=== PATIENT | female | born 1970 | race African-American/Black ===

== ENCOUNTER 2021-07-25 09:34 | Inpatient (IN) | payer OTHER ==
[~2021-07-25] VITALS: Ht 165.1 cm; Wt 72.6 kg
--- NOTE | 2021-07-25 09:37 | NUR ---
[facility] BLS TO ER BED 1
[2021-07-25 09:56] VITALS: BP 175/106
[2021-07-25] MEDS ORDERED: LORazepam 1 MG TAB PO ONE (10:05)
--- NOTE | 2021-07-25 10:10 | NUR ---
ASSUMED PATIENT CARE, NURSING ASSESSMENT COMPLETED. SEEN AND EVALUATED BY LISA MORRELL COMPLETED.
[2021-07-25 10:50] LABS: BASOPHILS # (AUTO) 0.1 K/uL (0.00-0.22); BASOPHILS % (AUTO) 0.5 % (0.0-2.0); EOSINOPHILS # (AUTO) 0.1 K/uL (0-0.4); HEMATOCRIT 39.3 % (36-48); HEMOGLOBIN 12.7 g/dL (12.0-16.0); LYMPHOCYTES # (AUTO) 3.3 K/uL (2.5-16.5); LYMPHOCYTES % (AUTO) 26.7 % (20.5-51.1); MEAN CORPUSCULAR HEMOGLOBIN 26 pg (27-31); MEAN CORPUSCULAR HGB CONC 32 g/dL (33-37); MEAN CORPUSCULAR VOLUME 80.2 fL (80-94); MONOCYTES # (AUTO) 0.5 K/uL (0.8-1.0); MONOCYTES % (AUTO) 4.3 % (1.7-9.3); NEUTROPHILS # (AUTO) 8.3 K/uL (1.8-7.7); NEUTROPHILS % (AUTO) 67.5 % (42.2-75.2); PLATELET COUNT (AUTO) 401 K/uL (140-450); RED CELL DISTRIBUTION WIDTH 15.7 % (11.6-13.7); WHITE BLOOD COUNT (AUTO) 12.3 K/uL (4.8-10.8)
[2021-07-25 11:19] LABS: ALBUMIN 4.1 g/dL (3.4-5.0); ANION GAP 13.6 (8-16); CARBON DIOXIDE 29.2 mmol/L (21-32); CREATININE 1.1 mg/dL (0.6-1.3); TOTAL BILIRUBIN 0.3 mg/dL (0.0-1.0)
[2021-07-25 11:24] LABS: POTASSIUM 2.8 mmol/L (3.5-5.1)
[2021-07-25] MEDS ORDERED: POTASSIUM CHLORIDE 10 MEQ TABER PO ONE (11:25)
[2021-07-25] MEDS ORDERED: LORazepam 2 MG/ML VIAL IVP ONE (11:55)
[2021-07-25] MEDS ORDERED: METOCLOPRAMIDE 10 MG/2 ML INJ VIAL IVP PRN (13:20)
[2021-07-25] MEDS ORDERED: POTASSIUM CHLORIDE 10 MEQ TABER PO PRN (13:20)
[2021-07-25] MEDS ORDERED: MAGNESIUM OXIDE 400 MG TAB PO PRN (13:20)
[2021-07-25] MEDS: POTASSIUM CHL 20 MEQ/NACL 0.9% 1,000 ML IV SCH (13:20)
--- NOTE | 2021-07-25 14:25 | NUR ---
Patient will be admitted to care of [facility]. Admited to TELE. Will go to room 112B. Belongings list completed. Report to
[2021-07-25 14:40] VITALS: BP 161/86
--- NOTE | 2021-07-25 14:40 | NUR ---
PT ARRIVED ON TO UNIT VIA GURNEY, ACCOMPANIED BY ER NURSE AND TRANSPORTER. PT IS AWAKE, ALERT, AND COOPERATIVE. ABLE TO VERBALIZE NEEDS. RESPIRATIONS ARE EVEN AND UNLABORED ON ROOM AIR. LUNG SOUNDS CLEAR ON AUSCULTATION. HE IS REGULAR, PT IS ON CARDIAC MONITORING. ABD IS NONTENDER, NONDISTENDED WITH BOWEL SOUNDS PRESENT IN ALL QUADRANTS. PT IS CONTINENT OF BOWEL AND BLADDER, ABLE TO AMBULATE TO REST ROOM INDEPENDENTLY. SKIN IS WARM, DRY, AND INTACT. PT HAS IV TO R AC, 20G. MRSA SCREEN DONE. VITALS TAKEN. CALL LIGHT WITHIN REACH. ALL SAFETY MEASURES IN PLACE. WILL CONTINUE TO MONITOR.
--- NOTE | 2021-07-25 15:21 | NUR ---
DISPO AND MEDICAL DECISION MAKING INPATIENT ADMISSION FOR FURTHER MANAGEMENT. PATIENT CARE REPORT ENDORSED TO JONE CARRILLO. PATIENT UPDATED OF PLAN OF CARE.
[2021-07-25] MEDS: LORazepam 1 MG TAB PO PRN ×2 (17:37→23:33)
--- NOTE | 2021-07-25 17:38 | NUR ---
PT VERY ANXIOUS. REMOVING CLOTHES, RESTLESS IN BED. PT STATES SHE FEELS VERY ANXIOUS AND FEELS LIKE SHE CANNOT STAY STILL. STATES SHE FEELS HOT THEN COLD AND FEELS VERY UNCOMFORTABLE. PT STATES SHE FEELS LIKE THIS AT TIMES AT HOME, AND TAKES PO ATIVAN. RECEIVED ORDER FOR ATIVAN. ADMINISTERED. WILL CONTINUE TO MONITOR.
--- NOTE | 2021-07-25 19:22 | NUR ---
ENDORSED PT TO NAIL ASSEMBLY MACHINE OPERATOR NURSE FOR CONTINUITY OF CARE. PT IS STABLE.
--- NOTE | 2021-07-25 19:23 | NUR ---
RECEIVED REPORT FROM AM NURSE. PATIENT IN BED WELL RESTED, AAOX4. NO ACUTE DISTRESS NOTED. RESPIRATION EVEN UNLABORED. IVF NS WITH 20 MEQ KCL INFUSING AT 80 ML/HR. ON ROOM AIR. SAFETY MEASURES ARE IN PLACE. NO COMPLAINTS OF PAIN AT TGHIS TIME. CALL LIGHT WITHIN REACH. WILL CONTINUE TO MONITOR PT.
[2021-07-25 20:00] VITALS: BP 155/82
[2021-07-25] MEDS ORDERED: ZOLPIDEM 10 MG TAB PO PRN (20:15)
--- NOTE | 2021-07-25 20:15 | NUR ---
PATIENT COMPLAINED OF INABILITY TO SLEEP. PAGED DR. RUTH WITH NEW ORDER CARRIED OUT.
--- NOTE | 2021-07-25 22:00 | NUR ---
STARTED A NEW PERIPHERAL IV ON THE LEFT HAND WITH GOOD BACK FLOW OF BLOOD. TOLERATED WELL.
[2021-07-25 23:01] LABS: APPEARANCE,URINE CLEAR (CLEAR); BILIRUBIN,URINE NEGATIVE (NEGATIVE); BLOOD, URINE 1+ (NEGATIVE); COLOR,URINE YELLOW (YELLOW); LEUKOCYTE ESTERASE ,URINE NEGATIVE (NEGATIVE); NITRITE, URINE NEGATIVE (NEGATIVE); PH,URINE 7.5 (5.0-9.0); UGLUCOSE NEGATIVE (NEGATIVE)
[2021-07-25 23:20] LABS: RBC,URINE 0-5 /HPF (0-5); WBC,URINE 0-5 /HPF (0-5)
[2021-07-25 23:21] LABS: URINE AMORPHOUS URATE 1+ /HPF (None Seen)
[2021-07-26 01:11] VITALS: BP 162/85
--- NOTE | 2021-07-26 01:21 | NUR ---
PATIENT IS SLEEPING. NO SOB NOTED. CALL LIGHT WITHIN EASY REACH.
[2021-07-26] MEDS: POTASSIUM CHL 20 MEQ/NACL 0.9% 1,000 ML IV SCH ×2 (01:50→06:21)
[2021-07-26 04:00] VITALS: BP 152/70
[2021-07-26 06:48] LABS: BASOPHILS % (AUTO) 0.3 % (0.0-2.0); EOSINOPHILS # (AUTO) 0.1 K/uL (0-0.4); EOSINOPHILS % (AUTO) 1.2 % (0.0-4.0); HEMATOCRIT 37.3 % (36-48); HEMOGLOBIN 12.2 g/dL (12.0-16.0); LYMPHOCYTES # (AUTO) 2.7 K/uL (2.5-16.5); LYMPHOCYTES % (AUTO) 28.9 % (20.5-51.1); MEAN CORPUSCULAR HEMOGLOBIN 26 pg (27-31); MEAN CORPUSCULAR HGB CONC 33 g/dL (33-37); MEAN CORPUSCULAR VOLUME 79.9 fL (80-94); MONOCYTES # (AUTO) 0.5 K/uL (0.8-1.0); MONOCYTES % (AUTO) 5.2 % (1.7-9.3); NEUTROPHILS # (AUTO) 6.1 K/uL (1.8-7.7); NEUTROPHILS % (AUTO) 64.4 % (42.2-75.2); PLATELET COUNT (AUTO) 333 K/uL (140-450); RED BLOOD CELL COUNT(AUTO) 4.67 MIL/uL (4.20-5.40); RED CELL DISTRIBUTION WIDTH 15.6 % (11.6-13.7); WHITE BLOOD COUNT (AUTO) 9.5 K/uL (4.8-10.8)
[2021-07-26 06:54] LABS: ALBUMIN 3.7 g/dL (3.4-5.0); ANION GAP 11.1 (8-16); CARBON DIOXIDE 27.4 mmol/L (21-32); CREATININE 0.8 mg/dL (0.6-1.3); POTASSIUM 3.5 mmol/L (3.5-5.1); TOTAL BILIRUBIN 0.3 mg/dL (0.0-1.0)
--- NOTE | 2021-07-26 07:20 | NUR ---
BEDSIDE ENDORSEMENT GIVEN TO AM NURSE FOR CONTINUITY OF CARE. PT IS STABLE.
--- NOTE | 2021-07-26 07:21 | NUR ---
RECEIVED BEDSIDE REPORT FROM ARTIFICIAL LIMB MAKER NURSE FOR CONTINUOUS OF CARE, PT RESTING, NO DISTRESS NOTED, ON ROOM AIR, NO SOB NOTED. IV TO LEFT HAND 25G PATENT INTACT, INFUSING NS 20MEQ KCL @ 80ML/HR, INFUSING WELL. INITIAL ASSESSMENT DONE, ALL SAFETY PRECAUTION MET, CALL LIGHT WITHIN REACH, WILL CONTINUE TO MONITOR.
[2021-07-26 08:00] VITALS: BP 154/98
--- NOTE | 2021-07-26 08:22 | NUR ---
NOTIFIED DR RUBIO REGARDING PT HIGH BP, PER PT ON MEDICATIONS AMLODIPINE, HYDROCHLOROTHIAZIDE AND LISINOPRIL AT HOME BUT DOES NOT KNOW THE DOSE, PER DR TO ORDER AMLODIPINE 10MG DAILY FOR NOW. WILL CONTINUE WITH ORDERS.
[2021-07-26] MEDS: LORazepam 1 MG TAB PO PRN (08:37)
--- NOTE | 2021-07-26 08:37 | NUR ---
PT C/O ANXIETY, ATIVAN GIVEN, PT TOLERATED WELL, WILL CONTINUE TO MONITOR.
[2021-07-26] MEDS ORDERED: amLODIPine 5 MG TAB PO SCH (09:00)
--- NOTE | 2021-07-26 09:03 | NUR ---
PT VOMITTED, PER PT ATIVAN THAT WAS TAKEN WAS THROWN UP, NOTIFIED DR. GRAY, PER DR TO CHANGE ORDER ATIVAN TO IV. WILL CONTINUE TO MONITOR.
[2021-07-26] MEDS ORDERED: LORazepam 2 MG/ML VIAL IVP PRN (09:10)
--- NOTE | 2021-07-26 09:24 | NUR ---
DUE MEDICATIONS ADMINISTERED, PT TOLERATED WELL, WILL CONTINUE TO MONITOR.
[2021-07-26] MEDS ORDERED: DOCU-299 PO (09:44)
[2021-07-26] MEDS ORDERED: RIZA10TA PO (09:44)
[2021-07-26] MEDS ORDERED: AMLO10TA PO (09:44)
[2021-07-26] MEDS ORDERED: IBUP200C97 PO (09:44)
[2021-07-26] MEDS ORDERED: TRAZ-343 PO (09:44)
[2021-07-26] MEDS ORDERED: VENL150T7 PO (09:44)
[2021-07-26] MEDS ORDERED: LOSA100T1 PO (09:44)
[2021-07-26] MEDS ORDERED: HYDR12.51 PO (09:44)
[2021-07-26] MEDS ORDERED: BUPR300T70 PO (09:44)
--- NOTE | 2021-07-26 11:50 | NUR ---
NOTIFIED DR GRAY REGARDING PT HAS HAD 4BM, PER DR TO ORDER CDIFF TEST, WILL CONTINUE WITH ORDERS.
[2021-07-26 12:00] VITALS: BP 130/93
--- NOTE | 2021-07-26 12:47 | NUR ---
07/26/21 RD INITIAL ASSESSMENT COMPLETED PLEASE REFER TO NUTRITION ASSESSMENT UNDER CARE ACTIVITY FOR ESTIMATED NUTRITIONAL NEEDS. 1. CONTINUE SOFT DIET TOLERATED -RECOMMEND ENSURE BID IF PT PO INTAKE IS < 75% 2. RD TO FOLLOW-UP 3-5 DAYS, MODERATE RISK DOLLY FLANNERY, RD
--- NOTE | 2021-07-26 13:36 | NUR ---
DC PLANNING SW MET WITH PATIENT AT BEDSIDE FOR THE PURPOSE OF DISCUSSING AND GATHERING COLLATERAL INFORMATION. PATIENT REPORTS LIVING ALONE AT THE ADDRESS LISTED. PATIENT REPORTS EMERGENCY CONTACT AND MEDICAL DECISION MAKER DAYANA NOBLE (MOM) [phone]. PATIENT DENIED CURRENTLY HAVING A.D IN PLACE, HOWEVER, PATIENT ACCEPTED AD PACKET PROVIDED BY [facility]. PATIENT ALSO REPORTS SON FAISAL KIMBLE (Son) EMERGENCY CONTACT [phone]. PATIENT REPORTS BEING CONSISTENT WITH SEEING PCP DR. TOUSSAINT EVERY OTHER MONTH AND LAST VISIT 06/2021. PATIENT ALSO REPORTS MEETING WITH A PSYCHIATRIST 1X MONTHLY AND LAST VISIT WITH PSYCHIATRIST 07/25/21. PATIENT REPORTS BEING MEDICATION COMPLIANT AND DENIES BARRIERS IN ACQUIRING MEDICATION. PATIENT RECEIVES MEDICATION FROM [facility] IN [place]. PATIENT REPORTS BEING INDEPENDENT AND DENIES DME USE. PATIENT DENIES RECEIVING DIALYSIS OR RECEIVING HOME HEALTH IN THE PAST. PATIENT REPORTS DC PLAN IS TO RETURN HOME WITH SON PROVIDING TRANSPORT. PATIENT REPORTS ADEQUATE FRIEND AND FAMILY SUPPORT AND REPORTS THE FAMILY WILL AID IN HER CARE IF REQUIRED. SW INQUIRED ON RESOURCES NEEDED, PATIENT DECLINED.
[2021-07-26] MEDS ORDERED: POTA-599 PO (14:00)
--- NOTE | 2021-07-26 14:29 | NUR ---
DC PLANNING: THE PATIENT PRESENTED TO THE ER FROM HOME WITH C/O HE, NAUSEA AND LIGHT SENSITIVITY X 3 DAYS. H/O HTN AND ANXIETY, WBC'S 12.3 AND ATIVAN PO PRN. THE PATIENT CONFIRMED HER ADDRESS AND PHONE NUMBER PER HER FACE SHEET. SHE LIVES ALONE IN A TOWNHOUSE AND IS INDEPENDENT IN ALL ACTIVITIES. SHE HAS NO H/O HOME HEALTH OR DME AND SEES HER PCP EVERY OTHER MONTH. SHE ALSO SEES HER PSYCHIATRIST MONTHLY FOR HER ANXIETY ISSUES AND IS ASSISTED NEEDED BY HER MOTHER AND HER SON. HER SON WILL ASSIST WITH TRANSPORT HOME, POTENTIAL DC HOME TODAY. CM WILL FOLLOW.
--- NOTE | 2021-07-26 14:30 | NUR ---
DC PAPER SIGNED, PT STATED UNDERSTANDING, NO QUESTIONS AT THIS MOMENT, PRESCRIPTION GIVEN. PT STATED UNDERSTANDING, IV TAKEN OUT CATH INTACT.
--- NOTE | 2021-07-26 14:39 | NUR ---
PT LEFT IN STABLE CONDITION, PICKED UP BY MOTHER.
[2021-07-26] MEDS ORDERED: LOSARTAN 25 MG TAB PO SCH (21:00)
[2021-07-27] MEDS ORDERED: hydroCHLOROthiazide 25 MG TAB PO SCH (09:00)
== END 2021-07-26 14:33 | disposition home or self-care (01) | DRG 425 ==
LOC: MED 09:34 → MTU 12:50 → OBSVTOIN 07-26 11:21
PROVIDERS: ADMIT Internal Medicine; ATTEND Internal Medicine
DX: E87.6 Hypokalemia (principal); F41.9 Anxiety disorder, unspecified; Z20.822 Contact with and (suspected) exposure to COVID-19; Z79.82 Long term (current) use of aspirin; Z88.6 Allergy status to analgesic agent; Z79.899 Other long term (current) drug therapy; Z88.5 Allergy status to narcotic agent; Z88.8 Allergy status to other drugs, medicaments and biological substances
CPT/HCPCS: 96374; 99285; G0378; 36415; 76705; 80053; 81001; 83735; 85025; 87070; 87081; 87086; 93005; J2060; J2765; J7030; Q0092